=== PATIENT | female | born 1995 | race American Indian/Alaskan Native ===

== ENCOUNTER 2018-03-20 21:33 | Emergency (ER) | payer OTHER ==
[2018-03-20] MEDS ORDERED: Sodium Chloride 0.9% 1,000 ML IV STA (22:39)
--- NOTE | 2018-03-20 22:40 | ED PDOC ---
HPI: Abdomen Time Seen by Provider: 03/20/18 21:50 Chief Complaint (Nursing): Abdominal Pain Chief Complaint (Provider): Left lower abdominal pain History/Exam Limitations: no limitations Onset/Duration Of Symptoms: Days Current Symptoms Are (Timing): Still Present Pain Scale Rating Of: 8 Location Of Pain/Discomfort: LLQ Quality Of Discomfort: Sharp Associated Symptoms: denies: Fever, Chills, Nausea, Vomiting, Diarrhea, Chest Pain, Constipation, Urinary Symptoms Additional Complaint(s): 23 y/o F with no significant PMHx presents to ED for evaluation of LLQ abdominal pain for 1 week. Patient states that her LLQ abd pain started 1 week ago after her menses, intermittent, no radiating, tolerable, no aggravating factors, getting relief without intervention of OTC pain medications. Pt reports this is the first time she gets a pain like this one. LMP: 03/09/18-. Denies intermenstrual vaginal bleeding, abnormal vaginal discharge. Denies sexual activity. Denies fevers, chills, cp, SOB, N/V, diarrheas, urinary symptoms. PMD: None Past Medical History Vital Signs: Last Vital Signs Temp 98.2 F 03/20/18 21:43 Pulse 103 H 03/20/18 21:43 Resp 20 03/20/18 21:43 BP 142/75 03/20/18 21:43 Pulse Ox 100 03/21/18 05:21 - Medical History PMH: No Chronic Diseases - Surgical History Surgical History: No Surg Hx - Family History Family History: States: Unknown Family Hx - Social History Current smoker - smoking cessation education provided: No Ex-Smoker (has not smoked in the last 12 months): No Alcohol: None Drugs: Denies - Allergies Allergies/Adverse Reactions: Allergies Allergy/AdvReac Type Severity Reaction Status Date / Time No Known Allergies Allergy Verified 03/20/18 21:43 Review of Systems ROS Statement: Except As Marked, All Systems Reviewed And Found Negative (as per HPI) Physical Exam - Reviewed Nursing Documentation Reviewed: Yes Vital Signs Reviewed: Yes - Physical Exam Appears: Positive for: Non-toxic, No Acute Distress Head Exam: Positive for: ATRAUMATIC, NORMOCEPHALIC Skin: Positive for: Normal Color, Warm, Dry Eye Exam: Positive for: Normal appearance Neck: Positive for: Supple Cardiovascular/Chest: Positive for: Regular Rate, Rhythm. Negative for: Edema Respiratory: Positive for: Normal Breath Sounds. Negative for: Decreased Breath Sounds, Accessory Muscle Use, Crackles, Rales, Rhonchi, Stridor, Wheezing , Respiratory Distress Gastrointestinal/Abdominal: Positive for: Soft, Tenderness (tenderness to palpation of LLQ). Negative for: Distended, Guarding, Rebound Back: Positive for: Normal Inspection. Negative for: L CVA Tenderness, R CVA Tenderness Neurologic/Psych: Positive for: Alert, Oriented - Laboratory Results Result Diagrams: 03/20/18 22:45 03/20/18 22:45 - ECG O2 Sat by Pulse Oximetry: 100 Medical Decision Making Medical Decision Making: Left lower quadrant abdominal pain -CBC, CMP -pelvic ultrasound -morphine 1 mg once - test in ED negative -urine dip positive for small blood -Never sexual active re-evaluation case discussed with Dr. Persaud Re-evaluation -CBC, CMP WNL pelvic US reported as no evidence of ovarian torsion, unremarkable results, pending official results CT scan w/o contrast to r/o nephrolithiasis still c/o pain, will give Toradol 15 mg IV once re-evaluation CT scan w/o PO or IV contrast reported as : No findings to explain left lower quadrant pain. However, suspect trace right lower quadrant free fluid surrounding the appendix which is not well-visualized. Early acute appendicitis is difficult to completely exclude.If clinically indicated, short interval followup could be obtained. pending official report. -Re-evaluation -No clinical correlation with acute appendicitis -afebrile -no leukocytosis -CT scan results discussed with Dr. Adkins -Will call General surgery for clinical evaluation -NPO for now Re-evaluation Spoke with surgical consultant, Dr. Ríos, who discussed case with Dr. Rivas, recommendations for 24 hours observation in house or discharge home , and come back to ED if fevers, chills, persistent abdominal pain, N/V or other worrisome symptoms, for clinical re-evaluation, and possible CT scan w/ contrast. Pt wants to go home and agrees with plan. Will come back if her clinical condition does not improve in the next 24 hours, or appearance of any worrisome S/S. Disposition - Clinical Impression Clinical Impression: Abdominal pain Discussed With : Graham Adkins - Disposition Disposition: Routine/Home Disposition Time: 06:14 Condition: IMPROVED Additional Instructions: Follow with primary doctor in 2-3 days. Come back to ED if fevers, chills, persistent abdominal pain, nausea, vomiting, or other worrisome symptoms. Instructions: Acute Abdomen (Belly Pain) Forms: [facility] (Ukrainian) Print Language: MARTINIQUAIS
[2018-03-20 23:27] LABS: BASO % 0.5 % (0.0-2.0); HEMOGLOBIN 13.3 g/dL (12.0-16.0); LYMPH # 1.8 K/uL (1.0-4.3); LYMPH % 23.7 % (20.0-40.0); MEAN CELL VOLUME 92.9 fl (81.0-99.0); MEAN CORPUSCULAR HEMOGLOBIN 31.1 pg (27.0-31.0); MEAN CORPUSCULAR HGB CONC 33.4 g/dL (33.0-37.0); MEAN PLATELET VOLUME 9.5 fl (7.2-11.7); MONO # 0.4 K/uL (0.0-0.8); MONO % 5.9 % (0.0-10.0); NEUT # 5.3 K/uL (1.8-7.0); NEUT % 69.9 % (50.0-75.0); RBC 4.3 Mil/uL (3.80-5.20); RED CELL DISTRIBUTION WIDTH 12.5 % (11.5-14.5); WHITE BLOOD COUNT 7.5 K/uL (4.8-10.8)
[2018-03-20 23:39] LABS: ALB/GLOB RATIO 1.4 (1.0-2.1); ALBUMIN 4.5 g/dL (3.5-5.0); ALT/SGPT 20 U/L (9-52); AST/SGOT 23 U/L (14-36); BLOOD UREA NITROGEN 13 mg/dl (7-17); CALCIUM 9.8 mg/dL (8.4-10.2); GFR NON-AFRICAN AMERICAN > 60
[2018-03-20 23:44] LABS: SQUAMOUS EPITHIAL 10 /hpf (0-5); URINE BILIRUBIN NEGATIVE (NEGATIVE); URINE BLOOD NEGATIVE (NEGATIVE); URINE CLARITY CLOUDY (Clear); URINE COLOR YELLOW (YELLOW); URINE GLUCOSE (UA) NEG (Normal); URINE LEUKOCYTE ESTERASE SMALL Leu/uL (Negative); URINE PROTEIN NEGATIVE (NEGATIVE); URINE UROBILINOGEN 0.2-1.0 mg/dL (0.2-1.0)
--- NOTE | 2018-03-21 06:22 | CP.PCM.CON ---
History of Present Illness - History of Present Illness History of Present Illness: General Surgery Dr. Rivas 23 y/o F w/ no PMHx presents to the ED c/o LLQ abd pain. Pt reports intermittent LLQ abd pain x5day. Pain cramping w/ radiation to low back. Nothing seems to make pain better/worse/instigate onset. Pt denies having this pain in the past. FDLKMP 03/09/18. Pt reports dysmenorrhea and menorrhagia. Pt admits to intermittent nausea associated w/ the pain. Pt denies F/C, vomiting, CP, SOB, D/C, dysuria, urgency, frequency. Pt denies previous sexual intercourse. Abd US performed in the ED revealed normal uterus and ovaries w/ multiple follicles CT A/P w/o contrast grossly normal; read as some abd free fluid, no visualized appendix Pt given 1mg Morphine and 15mg Toradol in ED. Pain much improved. PMHx: denies Meds: reviewed in chart NKDA PSHx: denies SHx: denies tobacco, EtOH, drug use FHx: noncontributory Review of Systems - Review of Systems All systems: reviewed and no additional remarkable complaints except (see HPI) Past Patient History - Past Social History Alcohol: None Drugs: Denies Meds Allergies/Adverse Reactions: Allergies Allergy/AdvReac Type Severity Reaction Status Date / Time No Known Allergies Allergy Verified 03/20/18 21:43 Physical Exam - Constitutional Appears: Non-toxic, No Acute Distress - Head Exam Head Exam: NORMAL INSPECTION - Eye Exam Eye Exam: Normal appearance - ENT Exam ENT Exam: Mucous Membranes Moist - Respiratory Exam Respiratory Exam: NORMAL BREATHING PATTERN. absent: Accessory Muscle Use, Respiratory Distress - Cardiovascular Exam Cardiovascular Exam: REGULAR RHYTHM. absent: Bradycardia, Tachycardia - GI/Abdominal Exam GI & Abdominal Exam: Soft, Tenderness (minimal TTP suprapubic/LLQ). absent: Distended, Firm, Guarding, Hernia, Rebound, Rigid - Extremities Exam Extremities exam: Positive for: normal inspection - Neurological Exam Neurological exam: Alert, Oriented x3 - Psychiatric Exam Psychiatric exam: Normal Affect, Normal Mood - Skin Skin Exam: Dry, Intact, Normal Color, Warm Results - Vital Signs Recent Vital Signs: Last Vital Signs Temp 98.2 F 03/20/18 21:43 Pulse 103 H 03/20/18 21:43 Resp 20 03/20/18 21:43 BP 142/75 03/20/18 21:43 Pulse Ox 100 03/21/18 06:13 - Labs Result Diagrams: 03/20/18 22:45 03/20/18 22:45 Labs: Laboratory Results - last 24 hr 03/20/18 03/20/18 03/20/18 22:45 22:45 22:45 WBC 7.5 RBC 4.30 Hgb 13.3 Hct 39.9 MCV 92.9 MCH 31.1 H MCHC 33.4 RDW 12.5 Plt Count 288 MPV 9.5 Neut % (Auto) 69.9 Lymph % (Auto) 23.7 [place] % (Auto) 5.9 Eos % (Auto) 0.0 Baso % (Auto) 0.5 Neut # (Auto) 5.3 Lymph # (Auto) 1.8 [place] # (Auto) 0.4 Eos # (Auto) 0.0 Baso # (Auto) 0.0 Sodium 140 Potassium 4.0 Chloride 104 Carbon Dioxide 24 Anion Gap 16 BUN 13 Creatinine 0.6 L Est GFR ( Amer) > 60 Est GFR (Non-Af Amer) > 60 Random Glucose 92 Calcium 9.8 Total Bilirubin 0.5 AST 23 ALT 20 Alkaline Phosphatase 45 Total Protein 7.8 Albumin 4.5 Globulin 3.3 Albumin/Globulin Ratio 1.4 Urine Color Yellow Urine Clarity Cloudy Urine pH 5.0 Ur Specific [place] 1.024 Urine Protein Negative Urine Glucose (UA) Neg Urine Ketones Trace Urine Blood Negative Urine Nitrate Negative Urine Bilirubin Negative Urine Urobilinogen 0.2-1.0 Ur Leukocyte Esterase Small Urine RBC (Auto) 6 H Urine Microscopic WBC 3 Ur Squamous Epith Cells 10 H - Imaging and Cardiology CT scan - abdomen Status: Image reviewed by me, Report reviewed by me ([facility] report) Assessment & Plan - Assessment and Plan (Free Text) Assessment: 23 y/o F w/ LLQ abd pain - Abd US and CT negative for acute pathology - no leukocytosis - pain improved - discussed options for 23hr obs vs d/c home w/ return if Sx worsen - Pt agreeable to d/c home w/ return if Sx worsen - if Sx continue/worsen, would benefit from CT w/ IV +/-PO contrast - recommend tylenol/advil/warm compresses for abd pain Pt discussed w/ Dr. Rob Ríos DO PGY3
[2018-03-21 06:55] VITALS: BP 114/67; PULSE 86; RESP 18; TEMP 98.4; O2SAT 98
--- NOTE | 2018-03-21 09:19 | US ---
Date of service: 03/21/2018 HISTORY: LLQ pain COMPARISON: None available. TECHNIQUE: Grayscale, color Doppler and spectral evaluation the pelvis performed transabdominally. FINDINGS: UTERUS: Measures 6.7 x 4.9 x 3.1 cm. Normal in size and appearance. No fibroid or other mass lesion seen. ENDOMETRIUM: Measures 3 mm in diameter. CERVIX: No cervical abnormality identified. RIGHT OVARY: Measures 3.9 x 3.3 x 1.6 cm. No solid mass. Normal flow. LEFT OVARY: Measures 3.4 x 2.4 x 1.4 cm. No solid mass. Normal flow. FREE FLUID: No significant free fluid noted. OTHER FINDINGS: None. IMPRESSION: Unremarkable pelvic ultrasound.
--- NOTE | 2018-03-21 09:47 | CT ---
Date of service: 03/21/2018 PROCEDURE: CT Abdomen and Pelvis without intravenous contrast HISTORY: LLQ abd pain COMPARISON: None. TECHNIQUE: Contiguous images were obtained from the domes of the diaphragms to the upper thighs without the administration of intravenous contrast. Oral contrast was not administered. Radiation dose: Total exam DLP = 261.2 mGy-cm. This CT exam was performed using one or more of the following dose reduction techniques: Automated exposure control, adjustment of the mA and/or kV according to patient size, and/or use of iterative reconstruction technique. FINDINGS: LOWER THORAX: Unremarkable. LIVER: Unremarkable. No gross lesion or ductal dilatation. GALLBLADDER AND BILE DUCTS: Unremarkable. PANCREAS: Unremarkable. No gross lesion or ductal dilatation. SPLEEN: Unremarkable. ADRENALS: Unremarkable. No mass. KIDNEYS AND URETERS: Unremarkable. No hydronephrosis. No solid mass. VASCULATURE: Unremarkable. No aortic aneurysm. BOWEL: Unremarkable. No obstruction. No gross mural thickening. APPENDIX: No findings to suggest acute appendicitis. PERITONEUM: Unremarkable. No free fluid. No free air. LYMPH NODES: Unremarkable. No enlarged lymph nodes. BLADDER: Unremarkable. REPRODUCTIVE: Unremarkable. BONES: No acute fracture. OTHER FINDINGS: None. IMPRESSION: Unremarkable non contrast enhanced CT of the abdomen and pelvis.
== END 2018-03-21 06:30 | disposition home or self-care (01) ==
LOC: H.ER 21:33
DX: R10.32 Left lower quadrant pain (principal); Z87.891 Personal history of nicotine dependence
CPT/HCPCS: 74176; 76856; 80053; 81003; 81025; 85025; 96360; 96374; 99285; J1885; J2270; J2405; J7030